=== PATIENT | male | born 1980 | race Caucasian/White ===

== ENCOUNTER 2020-10-12 10:04 | Outpatient (CLI) | payer OTHER, SELFPAY ==
--- NOTE | 2020-10-12 12:00 | NEURO_ITS ---
Impression: # Complains of pain in hands, right more than left. # Bilateral Carpal Tunnel Syndrome, left more than right. # No ulnar neuropathy. # Normal needle/EMG exam. # Clinical correlation recommended. Nerve Conduction Studies Anti Sensory Summary Table Stim Site NR Peak (ms) P-T Amp (?V) Site1 Site2 Delta-P (ms) Dist (cm) Lizandro (m/s) Left Median Anti Sensory (2-3nd Digit) Wrist 3.8 36.6 Wrist 2-3nd Digit 3.8 14.0 37 Wrist 3.8 31.7 Wrist 2-3nd Digit 3.8 14.0 37 Right Median Anti Sensory (2-3nd Digit) Wrist 4.0 56.8 Wrist 2-3nd Digit 4.0 14.0 35 Wrist 4.2 30.7 Wrist 2-3nd Digit 4.0 14.0 35 Left Radial Anti Sensory (Base 1st Digit) Wrist 2.3 34.4 Wrist Base 1st Digit 2.3 0.0 Right Radial Anti Sensory (Base 1st Digit) Wrist 2.2 27.3 Wrist Base 1st Digit 2.2 0.0 Left Ulnar Anti Sensory (5th Digit) Wrist 2.6 81.2 Wrist 5th Digit 2.6 14.0 54 Right Ulnar Anti Sensory (5th Digit) Wrist 2.6 21.4 Wrist 5th Digit 2.6 14.0 54 Motor Summary Table Stim Site NR Onset (ms) O-P Amp (mV) Site1 Site2 Delta-0 (ms) Dist (cm) Lizandro (m/s) Left Median Motor (Abd Poll Brev) Wrist 4.8 1.5 Elbow Wrist 5.7 30.0 53 Elbow 10.5 1.8 Right Median Motor (Abd Poll Brev) Wrist 3.8 4.8 Elbow Wrist 5.6 30.0 54 Elbow 9.4 4.0 Left Ulnar Motor (Abd Dig Minimi) Wrist 2.5 7.5 A Elbow Wrist 5.6 31.0 55 A Elbow 8.1 6.6 Right Ulnar Motor (Abd Dig Minimi) Wrist 2.5 8.6 A Elbow Wrist 5.5 31.0 56 A Elbow 8.0 7.3 F Wave Studies NR F-Lat (ms) L-R F-Lat (ms) Left Median (Mrkrs) (Abd Poll Brev) 33.23 1.52 Right Median (Mrkrs) (Abd Poll Brev) 31.71 1.52 Left Ulnar (Mrkrs) (Abd Dig Min) 30.84 1.57 Right Ulnar (Mrkrs) (Abd Dig Min) 29.27 1.57 EMG Side Muscle Nerve Root Ins Act Fibs Amp Dur Recrt Comment Right 1stDorInt Ulnar C8-T1 Nml Nml Nml Nml Nml Right Ext Indicis Radial (Post Int) C7-8 Nml Nml Nml Nml Nml Right Ext Digitorum Radial (Post Int) C7-8 Nml Nml Nml Nml Nml Right BrachioRad Radial C5-6 Nml Nml Nml Nml Nml Right PronatorTeres Median C6-7 Nml Nml Nml Nml Nml Right Abd Poll Brev Median C8-T1 Nml Nml Nml Nml Nml Left 1stDorInt Ulnar C8-T1 Nml Nml Nml Nml Nml Left Ext Indicis Radial (Post Int) C7-8 Nml Nml Nml Nml Nml Left Ext Digitorum Radial (Post Int) C7-8 Nml Nml Nml Nml Nml Left BrachioRad Radial C5-6 Nml Nml Nml Nml Nml Left PronatorTeres Median C6-7 Nml Nml Nml Nml Nml Left Abd Poll Brev Median C8-T1 Nml Nml Nml Nml Nml MTDD
== END 2020-10-12 10:05 | disposition home or self-care (01) ==
PROVIDERS: PCP Family Medicine Adolescent Medicine; Visit Provider Family Medicine Adolescent Medicine
DX: G56.02 Carpal tunnel syndrome, left upper limb (principal); G56.01 Carpal tunnel syndrome, right upper limb
CPT/HCPCS: 95886; 95911

== ENCOUNTER 2023-11-14 22:08 | Observation (INO) | payer OTHER, SELFPAY ==
--- NOTE | ~2023-11-14 | CT_ITS ---
EXAMINATION: CT abdomen pelvis w con DATE: 11/15/2023 00:16 INDICATION: Right lower quadrant tenderness to palpation and leukocytosis TECHNIQUE: Computed tomography (CT) of the abdomen and pelvis was performed with 100 mL Omnipaque-350 intravenous contrast. Automated exposure control and iterative reconstruction technique were employe d. The dose-length product was 850.19 mGy-cm. COMPARISON: None FINDINGS: Mild dependent atelectasis in the bilateral lower lobes. Small sliding-type hiatal hernia. Heart size is normal. No pericardial effusion. Liver, gallbladder, spleen, pancreas, bilateral adrenal glands a nd kidneys are normal. No bowel obstruction. Appendix is dilated with surrounding inflammatory strand ing consistent with acute appendicitis. No abscess or free intraperitoneal gas or fluid. Bladder is n ormal. No pathologically enlarged abdominal or pelvic lymphadenopathy. Mild thoracic spondylosis. IMPRESSION: 1. Acute appendicitis. 2. Small sliding-type hiatal hernia. Reviewed, dictated and finalized at location A.
[2023-11-14 22:17] VITALS: BP 149/86; PULSE 91; RESP 17; TEMP 36.9; O2SAT 100
[2023-11-14 22:26] VITALS: BP 146/91; PULSE 94; RESP 18; O2SAT 100
[2023-11-14 22:50] LABS: Basophils Absolute Auto 0.1 K/mm3 (0.0-0.1); Basophils Percent Auto 0.3 % (0.2-1.2); Eosinophils Absolute Auto 0.5 K/mm3 (0-0.3); Eosinophils Percent Auto 3.3 % (0-4.4); Hematocrit 43.2 % (42.0-52.0); Hemoglobin 14.8 g/dL (14.0-18.0); Immature Granulocyte Absolute 0.06 K/mm3 (0.00-0.031); Immature Granulocyte Percent A 0.4 % (0-0.5); Lymphocytes Absolute Auto 2.12 K/mm3 (0.9-3.2); Mean Corpuscular HGB Conc 34.3 g/dl (32-36); Mean Corpuscular Volume 90.4 fl (80-100); Mean Platelet Volume 9.1 fl (7.4-10.4); Monocytes Absolute Auto 1.4 K/mm3 (0.1-0.6); Monocytes Percent Auto 8.8 % (2.6-8.5); Neutrophils Absolute Auto 12.1 K/mm3 (1.3-6.7); Neutrophils Percent Auto 74.2 % (45.5-73.1); Platelet Count Result 254 k/mm3 (150-375); Red Blood Count 4.78 M/mm3 (4.6-6.20); Red Cell Distribution Width 12.6 % (11.5-14.5); White Blood Count 16.3 K/mm3 (4.5-10.0)
[2023-11-14 22:51] VITALS: BP 156/79; PULSE 87; RESP 25; TEMP 36.3; O2SAT 100
[2023-11-14 22:59] LABS: Alanine Aminotransferase 36 U/L (6-50); Albumin Level 4.8 g/dL (3.5-5.1); Alkaline Phosphatase 75 U/L (38-126); Anion Gap 8 mmol/L (4-12); Aspartate Amino Transferase 33 U/L (17-59); Bilirubin,Total 0.9 mg/dL (0.2-1.3); Blood Urea Nitrogen 21 mg/dL (9-20); Calcium 9.4 mg/dL (8.4-10.2); Carbon Dioxide 29 mmol/L (22-30); Chloride 101 mmol/L (98-107); Estimated CRCL calculation 80 ml/min; Estimated Glomerular Filt Rate > 60; Glucose 101 mg/dL (65-110); Lipase 74 U/L (23-300); Potassium 3.7 mmol/L (3.4-5.0); Sodium 138 mmol/L (137-145)
--- NOTE | 2023-11-14 23:23 | PC.NURSE ---
Assumed care of pt after taking report from BRENDA Menendez.
[2023-11-14 23:29] LABS: Appearance Urine Clear (Clear); Bilirubin Urine Negative (Negative); Blood Urine Negative (Negative); Color Urine Yellow (Yellow); Glucose Urine UA Negative (Negative); Ketones Urine Negative (Negative); Leukocyte Esterase Ur Negative LEU/UL (Negative); Nitrate Urine Negative (Negative); Protein Urine Negative (Negative); Specific Grav Ur 1.022 (1.001-1.035); Urobilinogen Urine 0.2 mg/dL (<2.0)
[2023-11-14 23:34] LABS: Add Urine Microscopic? NO
[2023-11-14 23:39] VITALS: BP 141/83; PULSE 89; RESP 20; O2SAT 99
--- NOTE | 2023-11-14 23:48 | ED.ABDPAIN ---
HPI - Abdominal Pain General Chief Complaint: Abdominal Pain Stated Complaint: abd pain Time Seen by Provider: 11/14/23 22:53 Source: patient and family (sister in law Wagner (ED nursing home manager at [facility])) Mode of arrival: ambulatory Limitations: no limitations History of Present Illness HPI narrative: 43-year-old who presents with dull right-sided abdominal pain starting at approximately 10:00 a.m. worsening. This is associated with nausea but no vomiting. His last bowel was between 1 and 2 pm without diarrhea or blood and he denies being constipated. Last oral intake was at approximately 12/12 30 p.m.. He is continuing to pass flatus. He denies any prior abdominal surgeries. Not on anticoagulation. This has never happened before. Has never undergone colonoscopy. He denies having an appetite. Related Data Allergies Allergy/AdvReac Type Severity Reaction Status Date / Time No Known Allergies Allergy Verified 11/14/23 22:08 PMFSH Past Medical History Medical History High cholesterol Surgical History Surgical History No pertinent past surgical history Family History Family History Father Acute myocardial infarction Diabetes mellitus Heart disease Mother Acute myocardial infarction Heart disease Hypertension Grandparent Carcinoma of colon Colon polyp Diabetes mellitus Social History Social History Smoking status: Never smoker Second hand tobacco smoke exposure: No Alcohol intake: never Substance use: never Substance use type: does not use Do You Feel Safe in your Home?: Yes Lack of Transportation: No Lack of Food: Never True Current Housing: I Have Housing Concerned About Future Housing: No Difficulty Paying Gas/Electric Bills: No Difficulty Paying for Meds: No Currently Unemployed: No Education: Bachelor's Degree Difficulty w/ Childcare or Family Care: No Living arrangements: with family Occupation/Education: occupation Gender identity (if verbalized by the patient): Male Spiritual care concerns: No Agree to blood products: Yes Exam Narrative: GENERAL: Well-appearing, well-nourished, and in no acute distress. HEAD: Normocephalic, atraumatic. EYES: Non injected, non icteric ENT: Nares clear, no rhinorrhea or epistaxis. Mildly tacky mucous membranes NECK: Supple. CHEST: Speaking in full sentences. No respiratory distress. HEART: Regular rate and rhythm. . ABDOMEN: Soft, nondistended. Tenderness palpation localized to the right lower quadrant without rigidity or guarding. Not diffusely peritoneal EXTREMITIES: Normal range of motion. No edema. SKIN: Warm, dry, no rash. NEURO: No focal deficits. Alert and oriented x3. PSYCH: Normal mood and affect. Course Vital Signs Vital signs: Vital Signs Temperature 98.4 F 11/14/23 22:17 Pulse Rate 91 11/14/23 22:17 Respiratory Rate 17 11/14/23 22:17 Blood Pressure 149/86 H 11/14/23 22:17 Pulse Oximetry 100 11/14/23 22:17 Oxygen Delivery Room Air 11/14/23 22:17 Temperature 97.5 F L 11/15/23 18:15 Pulse Rate 74 11/15/23 18:15 Respiratory Rate 16 11/15/23 18:15 Blood Pressure 121/72 11/15/23 18:15 Pulse Oximetry 94 11/15/23 18:15 Oxygen Delivery Room Air 11/15/23 17:40 Oxygen Flow Rate 10 11/15/23 17:05 Fraction of Inspired Oxygen 21 11/15/23 07:57 MDM - Abdominal Pain MDM Narrative Medical decision making narrative: 43-year-old male presents with a right-sided abdominal pain since 10:00 a.m. worsening. Associated with anorexia and nausea but no vomiting. In the emergency department he is afebrile with vital signs that show mild hypertension. Patient has tenderness to palpation of the right lower
[2023-11-14] MEDS: SODIUM CHLORIDE 0.9% IV 1,000 ML 999 ML IV CONT (23:56)
[2023-11-14] MEDS: MORPHINE SULFATE (*CRX) 4 MG/ML INJ IV PUSH (23:56)
[2023-11-14] MEDS: ONDANSETRON INJ 4 MG/2 ML VIAL IV PUSH (23:56)
[2023-11-15] VITALS (15 sets, daily range): BP systolic 106–128; BP diastolic 51–97; PULSE 72–96; RESP 15–24; TEMP 36.4–38.7; O2SAT 93–99; BMI 30.4
[2023-11-15] MEDS: ERTAPENEM 1 GM/NS 50 ML 1 GM/50 ML BAG IVPB (02:00)
[2023-11-15] MEDS: MORPHINE SULFATE (*CRX) 4 MG/ML INJ IV PUSH ×2 (02:00→05:17)
--- NOTE | 2023-11-15 02:26 | ADMGEN ---
This patient, Ellis Donaldson, was admitted to Medical Room 250-01. Patient/family oriented to hospital policies and general routines including ID bracelet, bed and alarms, visiting hours, pain management, procedures, bathroom and other care routines, personal items, smoking policy, room service/diet, and visiting hours. Information on how to activate the Rapid Response Team has been discussed. Patient/Family are encouraged to report perceived risks to care and to ask questions if they do not understand what they are told or what they should do.
[2023-11-15] MEDS: LACTATED RINGERS 1,000 ML 100 ML IV CONT (02:27)
[2023-11-15 09:37] LABS: Basophils Percent Auto 0.3 % (0.2-1.2); Eosinophils Percent Auto 0.2 % (0-4.4); Hematocrit 42.1 % (42.0-52.0); Hemoglobin 13.8 g/dL (14.0-18.0); Immature Granulocyte Absolute 0.04 K/mm3 (0.00-0.031); Immature Granulocyte Percent A 0.3 % (0-0.5); Lymphocytes Absolute Auto 1.35 K/mm3 (0.9-3.2); Mean Corpuscular HGB Conc 32.8 g/dl (32-36); Mean Corpuscular Hemoglobin 30.2 pg (26-34); Mean Corpuscular Volume 92.1 fl (80-100); Mean Platelet Volume 9.4 fl (7.4-10.4); Monocytes Absolute Auto 1.2 K/mm3 (0.1-0.6); Monocytes Percent Auto 8.9 % (2.6-8.5); Neutrophils Absolute Auto 10.9 K/mm3 (1.3-6.7); Neutrophils Percent Auto 80.3 % (45.5-73.1); Platelet Count Result 220 k/mm3 (150-375); Red Blood Count 4.57 M/mm3 (4.6-6.20); Red Cell Distribution Width 12.6 % (11.5-14.5); White Blood Count 13.5 K/mm3 (4.5-10.0)
--- NOTE | 2023-11-15 09:46 | PM.IMHP ---
H&P: HPI History of Present Illness Date/Time: 11/15/23 09:46 Chief Complaint: RLQ abdominal pain Narrative: This is a 43-year-old man with a PMH of hyperlipidemia, who presented to the ED for evaluation of RLQ abdominal pain x 1 day. He reports first noticing some very mild pain 2 nights ago before bed. He was able to sleep and woke up still noticing the pain. Throughout the day yesterday, his was persistent but tolerable. He went on a motorcycle ride in the evening, and his abdominal pain was aggravated by all the bumps on the ride. Due to the worsening pain, he presented to the ED. Labs showed a WBC count of 16,300. CT scan of the abdomen and pelvis showed evidence of acute uncomplicated appendicitis. Incidentally seen is a small sliding-type hiatal hernia. He was admitted for surgical evaluation and treatment. He was given one dose of IV ertapenem at 2:00 am this morning. He denies any previous abdominal surgeries. Review of Systems Review of Systems: All systems reviewed & are unremarkable except as noted in HPI and below PMFSH Past Medical History Medical History High cholesterol Surgical History Surgical History No pertinent past surgical history Family History Family History Father Acute myocardial infarction Diabetes mellitus Heart disease Mother Acute myocardial infarction Heart disease Hypertension Grandparent Carcinoma of colon Colon polyp Diabetes mellitus Social History Social History Smoking status: Never smoker Second hand tobacco smoke exposure: No Alcohol intake: never Substance use: never Substance use type: does not use Do You Feel Safe in your Home?: Yes Lack of Transportation: No Lack of Food: Never True Current Housing: I Have Housing Concerned About Future Housing: No Difficulty Paying Gas/Electric Bills: No Difficulty Paying for Meds: No Currently Unemployed: No Education: Bachelor's Degree Difficulty w/ Childcare or Family Care: No Living arrangements: with family Occupation/Education: occupation Gender identity (if verbalized by the patient): Male Spiritual care concerns: No Agree to blood products: Yes Meds Home Medications and Allergies Home Medications Medication Instructions Recorded Confirmed Type atorvastatin 20 mg tablet 20 mg PO DAILY #90 tabs 11/05/23 11/15/23 Rx Allergies Allergy/AdvReac Type Severity Reaction Status Date / Time No Known Allergies Allergy Verified 11/14/23 22:08 Vital Signs Vital Signs - 24 hr 11/14/23 22:17 11/14/23 22:26 11/14/23 22:51 Temperature 98.4 F 97.4 F L Pulse Rate 91 94 87 Respiratory Rate 17 18 25 H Blood Pressure 149/86 H 146/91 H 156/79 H Pulse Oximetry 100 100 100 Oxygen Delivery Room Air Room Air Fraction of Inspired Oxygen 11/14/23 23:39 11/15/23 01:51 11/15/23 02:45 Temperature 99.2 F Pulse Rate 89 85 88 Respiratory Rate 20 24 H 20 Blood Pressure 141/83 H 128/72 127/62 Pulse Oximetry 99 99 97 Oxygen Delivery Fraction of Inspired Oxygen 11/15/23 06:00 11/15/23 07:57 Temperature 98.7 F Pulse Rate 84 Respiratory Rate 20 Blood Pressure 112/51 L Pulse Oximetry 95 95 Oxygen Delivery Room Air Fraction of Inspired Oxygen 21 Exam Const: General: comfortable and no acute distress Nutritional Appearance: average body habitus Orientation/consciousness: patient oriented x3 HENMT: Head: normocephalic and atraumatic Ears: hearing grossly normal bilaterally Mouth: Yes moist mucous membranes Eyes: General: appearance normal, both eyes and all related structures Pupils: Equal, round and reactive pupils present Neck: Neck: normal visual inspection and full ROM Resp: Effort & Inspection: no respiratory distress
[2023-11-15 10:04] LABS: Anion Gap 11 mmol/L (4-12); Blood Urea Nitrogen 16 mg/dL (9-20); Calcium 8.6 mg/dL (8.4-10.2); Carbon Dioxide 23 mmol/L (22-30); Chloride 102 mmol/L (98-107); Estimated CRCL calculation 118 ml/min; Estimated Glomerular Filt Rate > 60; Glucose 99 mg/dL (65-110); Potassium 4.1 mmol/L (3.4-5.0); Sodium 136 mmol/L (137-145)
[2023-11-15] MEDS: LIDO 1%/EPINEPHRINE 1:100,000 20 ML VIAL 25 ML INFILTRATE (13:55)
--- NOTE | 2023-11-15 14:13 | WPDANESEPPF ---
Anes - Initial Pre Proc Eval Procedure: Operation Date: 11/15/23 15:00 Proposed Procedures p Laparoscopic Appendectomy - Hari Mora MD Date/Time: 11/15/23 14:13 Surgeon: Hari Mora MD Pre Op Diagnosis: Acute appy Patient Data Age: 43 Gender: M Height: 1.85 m Weight: 104.5 kg Last Vital Signs Temp 99.6 F 11/15/23 13:59 Pulse 84 11/15/23 13:59 Resp 20 11/15/23 06:00 BP 120/97 H 11/15/23 13:59 Pulse Ox 96 11/15/23 13:59 O2 Del Method Room Air 11/15/23 07:57 FiO2 21 11/15/23 07:57 Allergies Allergy/AdvReac Type Severity Reaction Status Date / Time No Known Allergies Allergy Verified 11/14/23 22:08 Home Medications Medication Instructions Recorded Confirmed Type atorvastatin 20 mg tablet 20 mg PO DAILY #90 tabs 11/05/23 11/15/23 Rx Laboratory Tests 11/14/23 11/14/23 11/15/23 22:41 23:13 09:25 WBC 16.3 H K/mm3 13.5 H K/mm3 (4.5-10.0) (4.5-10.0) RBC 4.78 M/mm3 4.57 L M/mm3 (4.6-6.20) (4.6-6.20) Hgb 14.8 g/dL 13.8 L g/dL (14.0-18.0) (14.0-18.0) Hct 43.2 % 42.1 % (42.0-52.0) (42.0-52.0) MCV 90.4 fl 92.1 fl (80-100) (80-100) MCH 31.0 pg 30.2 pg (26-34) (26-34) MCHC 34.3 g/dl 32.8 g/dl (32-36) (32-36) RDW 12.6 % 12.6 % (11.5-14.5) (11.5-14.5) Plt Count 254 k/mm3 220 k/mm3 (150-375) (150-375) MPV 9.1 fl 9.4 fl (7.4-10.4) (7.4-10.4) Immature Gran % (Auto) 0.4 % 0.3 % (0-0.5) (0-0.5) Neut % (Auto) 74.2 H % 80.3 H % (45.5-73.1) (45.5-73.1) Lymph % (Auto) 13.0 L % 10.0 L % (18.3-44.2) (18.3-44.2) Wake % (Auto) 8.8 H % 8.9 H % (2.6-8.5) (2.6-8.5) Eos % (Auto) 3.3 % 0.2 % (0-4.4) (0-4.4) Baso % (Auto) 0.3 % 0.3 % (0.2-1.2) (0.2-1.2) Lymph # (Auto) 2.12 K/mm3 1.35 K/mm3 (0.9-3.2) (0.9-3.2) Wake # (Auto) 1.4 H K/mm3 1.2 H K/mm3 (0.1-0.6) (0.1-0.6) Eos # (Auto) 0.5 H K/mm3 0.0 K/mm3 (0-0.3) (0-0.3) Baso # (Auto) 0.1 K/mm3 0.0 K/mm3 (0.0-0.1) (0.0-0.1) Abs Immat Gran (auto) 0.06 H K/mm3 0.04 H K/mm3 (0.00-0.031) (0.00-0.031) Absolute Neuts (auto) 12.1 H K/mm3 10.9 H K/mm3 (1.3-6.7) (1.3-6.7) Absolute Nucleated RBC 0.000 K/mm3 0.000 K/mm3 (0.0-0.012) (0.0-0.012) Nucleated RBC % 0.0 % 0.0 % (0.0-0.2) (0.0-0.2) Sodium 138 mmol/L 136 L mmol/L (137-145) (137-145) Potassium 3.7 mmol/L 4.1 mmol/L (3.4-5.0) (3.4-5.0) Chloride 101 mmol/L 102 mmol/L (98-107) (98-107) Carbon Dioxide 29 mmol/L 23 mmol/L (22-30) (22-30) Anion Gap 8 mmol/L 11 mmol/L (4-12) (4-12) BUN 21 H mg/dL 16 mg/dL (9-20) (9-20) Creatinine 1.20 mg/dL 0.90 mg/dL (0.7-1.3) (0.7-1.3) Estim Creat Clear Calc 80 ml/min 118 ml/min Estimated GFR > 60 > 60 (59 - ) (59 - ) Glucose 101 mg/dL 99 mg/dL (65-110) (65-110) Calcium 9.4 mg/dL 8.6 mg/dL (8.4-10.2) (8.4-10.2) Total Bilirubin 0.9 mg/dL (0.2-1.3) AST 33 U/L (17-59) ALT 36 U/L (6-50) Alkaline Phosphatase 75 U/L (38-126) Total Protein 8.0 g/dL (6.3-8.2) Albumin 4.8 g/dL (3.5-5.1) Lipase 74 U/L (23-300) Urine Color Yellow (Yellow) Urine Appearance Clear (Clear) Urine pH 6.0 (5.0-9.0) Ur Specific [place] 1.022 (1.001-1.035) Urine Protein Negative mg/dL (Negative) Urine Glucose (UA) Negative mg/dL (Negative) Urine Ketones Negative mg/dL (Negative) Ur Blood (Man) Negative (Negative) Urine Nitrate Negative (Negative) Urine Bilirubin Negative (Negative) Urine Urobilinogen 0.2 mg/dL (<2.0) Leukocyte Esterase Rfl Negative MARCI/UL (Negative) Patient hx a
[2023-11-15] MEDS: LACTATED RINGERS 1,000 ML 30 ML IV CONT ×2 (14:25→16:38)
--- NOTE | 2023-11-15 15:00 | WPDHPUPDATE1 ---
History and Physical Update Update Date/Time: 11/15/23 15:00 History and Physical has been reviewed, including an updated exam of the patient. There are NO changes in the patient's condition. Risks, benefits, and alternatives have been discussed and questions answered. Patient agrees to proceed with procedure.
[2023-11-15] MEDS: ACETAMINOPHEN 325 MG TABLET 650 MG PO (15:17)
[2023-11-15] MEDS: KETOROLAC 30 MG/ML VIAL (*BKC) IV PUSH (16:16)
--- NOTE | 2023-11-15 17:07 | W.PM.PROC2 ---
Procedure Note - Detailed Date of Procedure 11/15/23 Pre-op Diagnosis Acute Appendicitis Post-op Diagnosis Same Procedure Performed Laparoscopic appendectomy Surgeon Hari Mora MD Anesthesia General Indications Patient is a 43-year-old white male presented with a 12hour history of right lower quadrant abdominal pain. He had elevated white blood count [address]. CT scan abdomen pelvis showed acute appendicitis. He presented for an emergent laparoscopic appendectomy. Findings Acute appendicitis without perforation or periappendiceal abscess. Description of Procedure After informed consent was obtained patient brought to the operating room was placed supine position and general endotracheal anesthesia was administered. A Magaña catheter was placed decompress the bladder. The abdomen was then prepped and draped usual sterile fashion. A time-out was then performed correctly identifying the patient as well as procedure to be performed. He was given scheduled IV antibiotics. I then entered the abdomen left upper quadrant utilizing a 5mm Optiview port. Once inside the abdomen insufflated to adequate pneumoperitoneum of 15mmHg of CO2. I then placed a 12mm periumbilical trocar port as well as 5mm trocar ports in the suprapubic and right lower quadrant regions of the abdomen all under direct visualization. Working through these 3 ports I then identified the appendix in the right lower quadrant the abdomen. It was moderately dilated and inflamed throughout its whole length but the base of the appendix was certainly viable. I then made a defect through the mesoappendix just at the base with a [place] dissected. A 45mm Endo-KATHYA stapler was then used to divide the appendix at the cecum. A vascular reload to the Endo-KATHYA stapler was then used to divide the mesoappendix. The appendix was then placed in Endo-Catch bag and brought out through the periumbilical trocar port site. It was passed off table sent to pathology for examination. I then examined both staple lines able hemostatic. I then aspirated a small amount of blood which was the right lower quadrant and hemostasis was assured. I then removed all the trocar ports under visualization all port sites appeared hemostatic. I then allowed the abdomen decompressed. I reviewed all the port sites sterile saline solution hemostasis was good. The 12mm periumbilical trocar port fascial defect was then closed utilizing 0 Vicryl suture the fascial level. The skin edges not port sites were then approximated utilizing a running subcuticular 4 Monocryl suture. The incisions were then cleaned the skin glue sterile dressings were applied. The patient tolerated the procedure well no complications. All sponges, needles, and instrument counts were correct at the end procedure. EBL was __10_cc. The patient was awakened and taken to recovery in stable and satisfactory condition. Implants None Estimated Blood Loss 10 Drains No Packing No Pathology Yes ( appendix to pathology) Complications No immediate complications Condition Stable Disposition PACU [facility] Billing Surgery - Charge Forward: Surgery Billing
--- NOTE | 2023-11-16 07:40 | PM.DS ---
DS: Admitting Diagnosis Discharge Date 11/15/23 Admitting Diagnosis Acute appendicitis DS: Discharge Diagnosis Discharge Diagnosis (1) Acute appendicitis: Qualifiers: Acute appendicitis type: with localized peritonitis Appendicitis abscess presence: without abscess Appendicitis perforation presence: without perforation Code(s): K35.80 - Unspecified acute appendicitis Status: Acute DS: Summary Hospital Course Reason for hospitalization: Right lower quadrant abdominal pain, acute appendicitis Hospital Course: Patient presented [facility] Emergency Room with a several hour history of right lower quadrant abdominal pain. In the emergency room he was found to have acute appendicitis has a had elevated white blood cell count [id number] exam consistent with acute appendicitis and a CT scan which showed a dilated acutely inflamed appendix without perforation or periappendiceal abscess. He was given 1 dose of Invanz 1g in the emergency room and admitted to the surgical floor. On the surgical floor he was kept hydrated with IV fluids and kept NPO. He was given IV pain medicine as needed. The next afternoon he was then taken to the operating room and underwent an uncomplicated laparoscopic appendectomy. Findings can be found in the formal operative note. Postoperatively he did well in recovery room and went back to surgical floor for routine postoperative care. Later that day he was discharged home after being able to ambulate to the bathroom and urinate spontaneously. His vital signs were stable and is pain was well controlled with only oral pain medications. He tolerated some solid food. The incisions were dry without any bleeding or drainage. Status at Discharge Functional status at discharge: independent ambulation Overall status at discharge: patient is back to baseline Time Spent with Patient Time attestation: Total time spent providing and/or coordinating discharge services: Time spent: Less than 30 minutes Exam GI: Other: Abdomen is soft and nondistended. Port site incisions are healing well the skin glue in place. No bleeding or any drainage. Expected minor tenderness with palpation around the port sites. Previous right lower quadrant pain and guarding was now all resolved. DS: Data Data Completed and Pending Pending studies at discharge: Pending at discharge 11/15/23 13:43 Surgical [PTH] Routine Labs on day of discharge: Labs from last 24 hours 11/15/23 09:25 WBC 13.5 H RBC 4.57 L Hgb 13.8 L Hct 42.1 MCV 92.1 MCH 30.2 MCHC 32.8 RDW 12.6 Plt Count 220 MPV 9.4 Immature Gran % (Auto) 0.3 Neut % (Auto) 80.3 H Lymph % (Auto) 10.0 L Chaves % (Auto) 8.9 H Eos % (Auto) 0.2 Baso % (Auto) 0.3 Lymph # (Auto) 1.35 Chaves # (Auto) 1.2 H Eos # (Auto) 0.0 Baso # (Auto) 0.0 Abs Immat Gran (auto) 0.04 H Absolute Neuts (auto) 10.9 H Absolute Nucleated RBC 0.000 Nucleated RBC % 0.0 Sodium 136 L Potassium 4.1 Chloride 102 Carbon Dioxide 23 Anion Gap 11 BUN 16 Creatinine 0.90 Estim Creat Clear Calc 118 Estimated GFR > 60 Glucose 99 Calcium 8.6 Discharge Plan Discharge Attending physician on discharge: Hari Mora Consulting providers: Lindsey Fajardo; Angel Luis Akers; Richard Kaufman Discharging Clinician: Hari Mora Anticipated Discharge Date/Time: 11/15/23 21:00 Patient Disposition: Home, Self-Care Activity: may shower Diet: regular Wound Care Instructions: follow printed instructions Discharge Instructions: May discharge home when stable. Follow up with Dr. Mora in the office in 2 weeks. Patient to call [phone] for an appointment. May shower in 24hours but do not soak incisions under water for 2 weeks. No lifting more than 10 to 15 lb for 2 weeks. May advance diet as tolerated. No driving for at least 3 days or until no longer taking any narcotic pain medication. Resume all home
== END 2023-11-15 19:35 | disposition home or self-care (01) ==
LOC: ANHED 23:01 → ANH2MED 11-15 01:57
PROVIDERS: Admitting Provider Surgery; Emergency Provider Student in an Organized Health Care Education/Training Program; PCP Family Medicine Adolescent Medicine; Visit Provider Surgery
PROC: 0DTJ4ZZ Resection of Appendix, Percutaneous Endoscopic Approach (ICD-10-PCS; CPT 44970; principal; 2023-11-15 15:00)
DX: K35.32 Acute appendicitis with perforation, localized peritonitis, and gangrene, without abscess (principal); K44.9 Diaphragmatic hernia without obstruction or gangrene; E78.00 Pure hypercholesterolemia, unspecified
CPT/HCPCS: 44970; 36415; 74177; 80048; 80053; 81003; 83690; 85025; 88304; 96361; 96365; 96375; 99285; A9270; G0378; J0330; J1100; J1170; J1335; J1885; J2250; J2270; J2405; J2704; J3010; J7030; J7120; Q9967

== ENCOUNTER 2024-01-25 07:08 | Outpatient (CLI) | payer OTHER, SELFPAY ==
--- NOTE | ~2024-01-25 | XR_ITS ---
Clinical Indication: Cough PA and lateral views of the chest: Comparison: None Findings: The lungs are clear, without evidence of focal consolidation or pleural effusion. Cardiome diastinal silhouette is within normal limits. Bones and soft tissues are unremarkable. Impression: Normal chest. Reviewed, dictated and finalized at location . Impression: Normal chest.
== END 2024-01-25 07:09 | disposition home or self-care (01) ==
LOC: MICIMG 07:09
PROVIDERS: PCP Family Medicine Adolescent Medicine; Visit Provider Family Medicine Adolescent Medicine
DX: R05.9 Cough, unspecified (principal)
CPT/HCPCS: 71046

== ENCOUNTER 2025-01-09 07:48 | Outpatient (CLI) | payer OTHER, SELFPAY ==
--- NOTE | ~2025-01-09 | XR_ITS ---
EXAMINATION: XR knee LT 3V, 01/09/2025 7:54 CDT HISTORY: chronic pain at inferior edge of patella COMPARISON: No comparisons available. Findings: No acute fracture or malalignment. No significant degenerative changes. Soft tissues unremarkable. Impression: No acute fracture or malalignment. Reviewed, dictated and finalized at location A. Impression: No acute fracture or malalignment.
== END 2025-01-09 07:49 | disposition home or self-care (01) ==
LOC: MICIMG 07:51
PROVIDERS: PCP Family Medicine Adolescent Medicine; Visit Provider Family Medicine Adolescent Medicine
DX: M25.562 Pain in left knee (principal)
CPT/HCPCS: 73562

== ENCOUNTER 2025-03-31 11:32 | Outpatient (CLI) | payer OTHER, SELFPAY ==
--- NOTE | ~2025-03-31 | MR_ITS ---
EXAMINATION: MR knee LT wo con DATE: 03/31/2025 12:59 INDICATION: Left knee patellar tendinitis TECHNIQUE: Magnetic resonance imaging (MRI) of the left knee was performed without intravenous contrast. Sequences included coronal PD-weighted FSE, coronal PD-weighted FS FSE, sagittal T2-weighted FSE, sagittal PD-weighted FS FSE and axial PD weighted fat saturated FSE. COMPARISON: None. FINDINGS: Medial compartment: Medial meniscus is normal. There is chondral fissuring at the central weightbearing medial femoral condyle which appears to involve greater than 50% the cartilage thickness with negligible underlying subarticular edema-like signal change. Additional small likely deep chondral fissure with minimal under lying subarticular edema-like signal change at the anteromedial margin of the medial tibial plateau. Lateral compartment: Lateral meniscus is normal. Small region of partial-thickness chondral ulceration with minimal underlying cortical irregularity at the posterior most weightbearing lateral femoral condyle. Additional partial-thickness chondral ulceration with mild underlying subarticular edema-like signal change along the shoulder of the intercondylar eminence. Patellofemoral compartment: Small region of deep chondral ulceration with minimal underlying cortical irregularity at the caudal aspect of the medial trochlea. Remaining cartilage the patellofemoral compartment is normal. Ligaments and tendons: Anterior and posterior cruciate ligaments are normal. The medial collateral ligament and fibular collateral ligament complex are normal. Mild to moderate proximal predominant patellar tendinopathy without discrete tear but with moderate-sized enthesophyte at the patellar insertion of the proximal tendon. Mild distal quadriceps tendinopathy with additional moderate sized enthesophytes at its patellar insertion. The visualized medial and lateral hamstring tendons as well as the iliotibial band are normal. Fluid: Physiologic amount of fluid in the joint space. No loose osteochondral bodies identified. Osseous/other: Bone alignment is normal. No fracture or pathologic marrow replacing process. Mild edema in the infrapatellar fat pad which could be reactive related to the adjacent patellar tendinopathy or due to fat pad impingement syndrome. IMPRESSION: 1. 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 2. Mild to moderate patellar and mild quadriceps tendinopathy/enthesopathy most prominent at the patellar insertions of the tendons. Reviewed, dictated and finalized at location A. ER CLERK IMPRESSION: 1. Mild tricompartmental osteoarthritis with small regions of high-grade chondr omalacia in all 3 compartments. 2. Mild to moderate patellar and mild quadriceps tendinopathy/enthesopathy most prominent at the patellar insertions of the tendons.
== END 2025-03-31 11:33 | disposition home or self-care (01) ==
LOC: MICIMG 11:33
PROVIDERS: PCP Family Medicine Adolescent Medicine; Visit Provider Orthopaedic Surgery
DX: M17.12 Unilateral primary osteoarthritis, left knee (principal); M94.262 Chondromalacia, left knee; M76.52 Patellar tendinitis, left knee
CPT/HCPCS: 73721